=== PATIENT | male | born 1950 | race Caucasian/White ===

== ENCOUNTER 2016-07-15 09:15 | Observation (INO) ==
[2016-07-15] MEDS ORDERED: Ketorolac 30 MG/ML VIAL IVP ONE (09:42)
[2016-07-15] MEDS ORDERED: 0.9 % Sodium Chloride 1,000 ML IVC ONE (09:42)
[2016-07-15] MEDS ORDERED: *HR* FentaNYL (PF) 100 MCG/2 ML VIAL IVP ONE (09:42)
[2016-07-15] MEDS ORDERED: Ondansetron 4 MG/2 ML VIAL IVP ONE ×2 (09:48→11:22)
--- NOTE | 2016-07-15 09:52 | Emergency Department Note ---
Disposition Clinical Impression: Ureterolithiasis Hydronephrosis Qualifiers: Hydronephrosis type: with renal calculous obstruction Qualified Code(s): N13.2 - Hydronephrosis with renal and ureteral calculous obstruction Nausea and vomiting Qualifiers: Vomiting type: unspecified Vomiting Intractability: non-intractable Qualified Code(s): R11.2 - Nausea with vomiting, unspecified Disposition: Admitted As Inpatient Condition: Good Male Urogenital HPI - General Chief complaint: ED Urogenital-Male Stated complaint: Poss Kidney stone Time Seen by Provider: 07/15/16 09:27 Source: patient Mode of arrival: ambulatory Limitations: no limitations Nursing Notes Reviewed: Yes Vital Signs Reviewed: Yes - History of Present Illness HPI Narrative: 65-year-old male history of nephrolithiasis requiring extraction and lithotripsy in the past who presents to the ER with a chief complaint of left groin pain. Patient states he woke up this morning at 5:30 with left groin pain. States it feels similar to his previous kidney stones. Reports they are usually on the right side. He states that he was not sheeted and also had a few episodes of vomiting. Patient denies a history of hernia. He denies dysuria or hematuria. Patient states he does follow regularly with the urologist. No fevers. No recent illnesses. No other complaints. Pt Subjective Complaint: testicle pain, other (left groin pain) Onset (ago): hour(s) (05:30) Duration: constant Location: left testicle, left inguinal region Severity: moderate - Related Data Home Medications Medication Instructions Recorded Confirmed Loratadine [Claritin] 10 mg PO DAILY 02/09/16 07/15/16 Potassium Chloride [K-Tab ER] 10 meq PO DAILY 02/09/16 07/15/16 Hydrochlorothiazide 25 mg PO DAILY 07/15/16 07/15/16 [Hydrochlorothiazide] Allergies Allergy/AdvReac Type Severity Reaction Status Date / Time codeine Allergy Hives Verified 07/15/16 11:50 Penicillins Allergy Hives Verified 07/15/16 11:50 All systems ED: reviewed and negative except as stated. Constitutional: Denies: fever Cardiovascular: Denies: chest pain Respiratory: Denies: cough, dyspnea Gastrointestinal: Reports: abdominal pain, nausea, vomiting. Denies: diarrhea Genitourinary: Denies: dysuria, hematuria Musculoskeletal: Denies: back pain Past Medical History - Past Medical History Attestation: Yes The following information was validated with the patient. Source: patient Medical history: Reports: hypertension, kidney stones, other Surgical history: Reports: other Psychiatric history: Reports: no psych history - Social History Smoking Status: Current every day smoker Smokeless Tobacco Status: No Alcohol use: Reports: none Drug use: Reports: none Physical Exam - General Limitations: no limitations General appearance: alert, in no apparent distress - Head Head exam: atraumatic, normocephalic, normal inspection - Eye Eye exam: Present: normal appearance - ENT ENT exam: normal exam - Neck Neck exam: Present: normal inspection - Chest Chest inspection: Present: normal inspection, symmetric chest wall rise - Respiratory Respiratory exam: Present: normal lung sounds bilaterally - Cardiovascular Cardiovascular exam: Present: regular rate, normal rhythm, normal heart sounds - Abdominal Exam Abdominal Exam: Present: soft, Non-Tender. Absent: tenderness - Male exam: Present: normal inspection, normal testicular lie. Absent: inguinal hernia, scrotal swelling - Expanded Lower Extremity Exam Hip/Pelvis exam: Present: normal inspection, full ROM Upper leg exam: Present: normal inspection, full ROM Knee exam: Present: normal inspection, full ROM Lower leg exam: Present: normal inspection, full ROM Ankle exam: Present: normal inspection, full ROM Foot/toe exam: Present: normal inspection, full ROM - Back Exam Back exam: Absent: CVA tenderness (R), CVA tenderness (L) - Neurological Exam Neurological exam: Present: alert - Psychiatric Psychiatric exam: Present: normal affect, normal mood - Skin Skin exam: Present: warm, dry, intact, normal color Course Course Narrative: Patient seen and evaluated. Reports pain similar to his previous kidney stones. We will get a CT scan of the abdomen and pelvis. Also we will check some basic labs for kidney function. Pain will be controlled with IV analgesics and antiemetics. - Reevaluation(s) Reevaluation #1: Discussed results of CT scan with the patient and family. He reports that he is still in pain and would like another dose of medications. I will talk with urology about admission for pain control and for possible extraction. - Consultations Consultation #1: Discussed this case with the on-call urologist Dr. Dunne. Patient is accepted to his service for further management. Requested to be made NPO Vital Signs Temperature 97.6 F 07/15/16 09:20 Pulse Rate 82 07/15/16 09:20 Respiratory Rate 18 07/15/16 09:20 Blood Pressure 156/90 07/15/16 09:20 O2 Sat by Pulse Oximetry 97 07/15/16 09:20 Temperature 97.6 F 07/15/16 09:20 Pulse Rate 69 07/15/16 11:30 Respiratory Rate 16 07/15/16 11:30 Blood Pressure 153/96 07/15/16 11:30 O2 Sat by Pulse Oximetry 98 07/15/16 11:30 Oxygen Delivery Oxygen Delivery Room Air Urogenital-Male - MDM Narrative Medical decision making narrative: 65-year-old male presents to the ER due to left groin pain. History of multiple renal stones in the past requiring extraction. CT scan shows a 7 mm obstructing stone in the left proximal ureter. Chemistry within normal limits. Has required multiple doses of IV pain medication and anti-emetics. Patient accepted to urology service for management. - Lab Data Lab results reviewed: Yes I reviewed the patient's lab results. Result diagrams: 07/15/16 09:31 07/15/16 09:31 Lab Results 07/15/16 07/15/16 Range/Units 09:31 09:31 WBC 16.9 H (4.3-11.1) K/mcL RBC 5.41 (4.19-5.50) M/mcL Hgb 17.3 H (12.9-16.9) g/dL Hct 50.0 (37.5-50.1) % MCV 92.4 (83.0-100.0) fL MCH 32.0 (28.0-33.3) pg MCHC 34.6 (31.6-35.5) g/dL RDW 12.3 (11.5-14.5) % Plt Count 240 (140-400) K/mcL MPV 10.1 (9.4-12.4) fL Immature Gran % 0.5 (0-4) % Seg Neutrophils % 87.1 % Lymphocytes % 6.9 % Monocytes % 4.5 % Eosinophils % 0.5 % Basophils % 0.5 % Neutrophils # 14.7 H (1.6-8.9) K/mcL Lymphocytes # 1.2 (0.6-4.6) K/mcL Monocytes # 0.8 (0.0-1.3) K/mcL Eosinophils # 0.1 (0.0-0.6) K/mcL Basophils # 0.1 (0.0-0.2) K/mcL Sodium 140 (136-145) mEq/L Potassium 3.8 (3.5-4.5) mEq/L Chloride 103 (98-109) mEq/L Carbon Dioxide 27 (19-29) mEq/L BUN 18 (8-26) mg/dL Creatinine 1.14 (0.72-1.25) mg/dL Est GFR ( Amer) > 60 (> 60) Est GFR (Non-Af Amer) > 60 (> 60) BUN/Creatinine Ratio 16 (6-26) Glucose 106 H (70-99) mg/dL Calculated Osmolality 292 (280-300) Calcium 9.1 (8.6-10.8) mg/dL - Radiology Data Radiology results reviewed: Yes I reviewed the patient's radiology results. Abdomen/Pelvis CT 07/15/16 09:54 IMPRESSION: Moderate left hydronephrosis secondary to a 7 mm calculus within the proximal left ureter. Similar changes are identified on previous study though the obstructing calculus appears to be new and different. The calculus within the lower pole of the left kidney on prior exam appears to have migrated into the left proximal ureter. Small calculi within the left kidney. D/ / 07/15/2016 11:07:56 Goran Asencio MD / rossi Interpreting Provider: Goran Asencio MD Attestation Statement - Attestation Attestation: For this encounter, I have reviewed the resident, CHANGE MANAGEMENT ANALYST, or PA documentation, treatment plan, and medical decision making; and I have had face to face time with this patient. 65-year-old male presents with concerns of left flank pain. Patient states he has a long history of kidney stones in the past which are generally on the right side but he is concerned because the pain was on left. Patient states he feels a pressure in his left groin similar to his previous ureterolithiasis. Patient has had multiple stones which needed to be surgically removed in the past. Patient denies fever, chills, nausea, vomiting. CT of the abdomen and pelvis reveals a 7 mm stone which is causing hydronephrosis of the left kidney. Resident spoke with Dr. Dunne who accepted the patient onto his service. Patient will be taken to the OR for removal of stone. Patient is comfortable with the plan and his pain is controlled with IV medications.
[2016-07-15 09:59] LABS: Basophils # 0.1 K/mcL (0.0-0.2); Basophils % 0.5 %; Eosinophils # 0.1 K/mcL (0.0-0.6); Eosinophils % 0.5 %; Hemoglobin 17.3 g/dL (12.9-16.9); Immature Granulocytes % 0.5 % (0-4); Lymphocytes # 1.2 K/mcL (0.6-4.6); Lymphocytes % 6.9 %; Mean Corpuscular HGB Conc 34.6 g/dL (31.6-35.5); Mean Corpuscular Volume 92.4 fL (83.0-100.0); Mean Platelet Volume 10.1 fL (9.4-12.4); Monocytes # 0.8 K/mcL (0.0-1.3); Monocytes % 4.5 %; Neutrophils # 14.7 K/mcL (1.6-8.9); Platelet Count 240 K/mcL (140-400); Red Blood Count 5.41 M/mcL (4.19-5.50); Red Cell Distribution Width 12.3 % (11.5-14.5); Segmented Neutrophils % 87.1 %
[2016-07-15 10:15] LABS: BUN/Creatinine Ratio 16 (6-26); Blood Urea Nitrogen 18 mg/dL (8-26); Calcium 9.1 mg/dL (8.6-10.8); Carbon Dioxide 27 mEq/L (19-29); Chloride 103 mEq/L (98-109); Glucose 106 mg/dL (70-99); Osmolality,Calculated 292 (280-300); Potassium 3.8 mEq/L (3.5-4.5); Sodium 140 mEq/L (136-145); eGFR For African Americans > 60 (> 60); eGFR For Non-African Americans > 60 (> 60)
[2016-07-15] MEDS ORDERED: *HR* Morphine 2 MG/ML SYRINGE IVP ONE (11:22)
--- NOTE | 2016-07-15 13:28 | Urology History & Physical ---
Date of Encounter: 07/15/16 Time of Encounter: 13:26 Assessment and Plan (1) Ureterolithiasis Current Visit: Yes Status: Acute Patiently brought in for observation as well as to continue the operating room for left ureteroscopic stone extraction. History of Present Illness Chief complaint: left flank pain HPI: Mr. Daily is a 65 year old male with history of kidney stones. Patient came to the ED today for severe left-sided flank pain. Patient is found to have a mid proximal 7 mm ureteral stone and left side. Patient also with some mild nausea. Pain was a 10 out of 10 in nature. No fevers. Past Med Surg Social Fam HX - Past Medical History Medical history: hypertension, kidney stones, other Psychiatric history: no psych history - Past Surgical History Surgical History: other - Social History Smoking Status: Current every day smoker Smokeless Tobacco Status: No Alcohol use: none Drug use: none Medications and Allergies Loratadine [Claritin] 10 mg PO DAILY 02/09/16 [History] Potassium Chloride [K-Tab ER] 10 meq PO DAILY 02/09/16 [History] Hydrochlorothiazide [Hydrochlorothiazide] 25 mg PO DAILY 07/15/16 [History] Allergies codeine Allergy (Verified 07/15/16 11:50) Hives Penicillins Allergy (Verified 07/15/16 11:50) Hives Review of Systems - Constitutional no chills - EENT Nose, mouth and throat: no dizziness - Cardiovascular no chest pain - Respiratory no cough Exam Initial Vital Signs Temp Pulse Resp BP Pulse Ox 97.6 F 82 18 156/90 97 07/15/16 09:20 07/15/16 09:20 07/15/16 09:20 07/15/16 09:20 07/15/16 09:20 - General physical appearance Present: well developed - Respiratory Present: normal respiratory effort - Cardiovascular Cardiovascular exam IM: RRR - Abdomen Abdomen: Present: soft Urology Results - Labs 07/15/16 09:31 07/15/16 09:31 Abnormal lab results WBC 16.9 K/mcL (4.3-11.1) H 07/15/16 09:31 Hgb 17.3 g/dL (12.9-16.9) H 07/15/16 09:31 Neutrophils # 14.7 K/mcL (1.6-8.9) H 07/15/16 09:31 Glucose 106 mg/dL (70-99) H 07/15/16 09:31 All other labs normal.
[2016-07-15] MEDS ORDERED: Clindamycin 900 MG/50 ML 900 MG/50 ML IV.SOLN IVPB ONE ×2 (14:00→14:27)
--- NOTE | 2016-07-15 14:00 | Anesthesia Evaluation PreOp ---
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) Other Medical History: Denies Any Significant HX Anesthesia History: No Prior Anesthetic Complications, Past Anesthesia Alcohol Use: none Drug use: none Medications and Allergies Loratadine [Claritin] 10 mg PO DAILY 02/09/16 [History] Potassium Chloride [K-Tab ER] 10 meq PO DAILY 02/09/16 [History] Hydrochlorothiazide [Hydrochlorothiazide] 25 mg PO DAILY 07/15/16 [History] Allergies codeine Allergy (Verified 07/15/16 11:50) Hives Penicillins Allergy (Verified 07/15/16 11:50) Hives - Meds/Allergy Pre-op Review Medications Reviewed: Yes Allergies Reviewed: Yes Beta Blockers on Current Med List: No Anesthesia Results - Labs 07/15/16 09:31 07/15/16 09:31 - Imaging EKG: image reviewed (SR,) Anesthesia Exam O2 Sat Height 1.78 m Weight 86.183 kg O2 Sat by Pulse Oximetry 97 O2 Sat by Pulse Oximetry 97 O2 Sat by Pulse Oximetry 98 O2 Sat by Pulse Oximetry 95 O2 Sat by Pulse Oximetry 97 Vital Signs Temp Pulse Resp BP Pulse Ox 97.6 F 82 18 156/90 97 07/15/16 09:20 07/15/16 09:20 07/15/16 09:20 07/15/16 09:20 07/15/16 09:20 Height: 5'10'' Weight: 190# NPO (# of Hours): > 8 hrs Pain Scale: 0 Pain Scale Used: Numeric (1 - 10) - HEENT Pupil (Motor): Pupils equal, EOMI Mallampati: III Teeth: Poor dentition Oral Opening: Greater than 3 - CORRUGATED SHEET MATERIAL SHEETER LOC: Oriented CORRUGATED SHEET MATERIAL SHEETER Motor: Normal RUE, Normal LUE, Normal RLE, Normal LLE, Normal Face CORRUGATED SHEET MATERIAL SHEETER Sensory: Normal: RUE, LUE, RLE, LLE, Face - Cardiac Rhythm: Regular Murmur: None JVD: No Carotid Bruit: No - Pulmonary Breath Sounds: bilateral Clear Respiratory Effort: Symmetrical Anesthesia Assess/Plan ASA Score: 2
[2016-07-15] MEDS ORDERED: Lidocaine -MPF 2% 2 ML VIAL ONE (14:17)
[2016-07-15] MEDS ORDERED: *HR* FentaNYL (PF) 100 MCG/2 ML VIAL ONE (14:17)
[2016-07-15] MEDS ORDERED: Ondansetron 4 MG/2 ML VIAL ONE (14:17)
[2016-07-15] MEDS ORDERED: *HR* Propofol 200 MG/20 ML VIAL IVP ONE (14:17)
[2016-07-15] MEDS ORDERED: EPHEDrine 50 MG/ML VIAL ONE (14:32)
--- NOTE | 2016-07-15 14:58 | Operative Note ---
Date of procedure: 07/15/16 Pre-op diagnosis: left ureteral stone Post-op diagnosis: same Procedure: Left ureteroscopic laser lithotripsy of stone, left ureteroscopic basket retrieval stone fragment, left 4.8 x 28 cm ureteral stent placement Anesthesia: GETA Surgeon: Ezra Dunne Specimen: left ureteral stone Condition: stable Disposition: PACU Procedure in Detail: The patient was prepped and draped in normal sterile fashion after being placed in lithotomy position. I then inserted the cystoscope into the patient's bladder. I then cannulated the left ureter with a sensor wire. I then placed the semirigid ureteroscope into the ureter. Once I encountered the stone, I used the holmium laser to fragment the stone into multiple small pieces. I then used a Nitinol tipless basket to remove all stone fragments from the patient's ureter. Once this was done, the ureter was surveyed with no further stones seen. I then back fed a 4.8x28 cm ureteral stent into place on the left side, with good curl seen in the kidney and in the bladder. This was placed using fluoroscopic guidance. A string was left for easy removal. The procedure was ended.
[2016-07-15] MEDS: *HR* HYDROmorphone (PF) 1 MG/ML SYRINGE IVP PRN ×4 (15:02→15:36)
[2016-07-15] MEDS ORDERED: Ringers Solution, Lactated 1,000 ML ONE (15:26)
[2016-07-15] MEDS ORDERED: *HR* Metoprolol 5 MG/5 ML VIAL IVP ONE (15:47)
--- NOTE | 2016-07-15 15:57 | Discharge Summary ---
Date of Encounter: 07/15/16 Time of Encounter: 15:55 - Discharge Diagnosis (1) Ureterolithiasis Priority: Primary Status: Acute - Discharge Medications Prescriptions: Oxycodone HCl/Acetaminophen [Percocet 5-325 mg Tablet] 1 each PO Q6H PRN #15 tablet PRN Reason: Pain Home Medications: Loratadine [Claritin] 10 mg PO DAILY 02/09/16 [History] Potassium Chloride [K-Tab ER] 10 meq PO DAILY 02/09/16 [History] Hydrochlorothiazide 25 mg PO DAILY 07/15/16 [History] Oxycodone HCl/Acetaminophen [Percocet 5-325 mg Tablet] 1 each PO Q6H PRN #15 tablet 07/15/16 [Rx] Allergies/Adverse Reactions: Allergies codeine Allergy (Verified 07/15/16 11:50) Hives Penicillins Allergy (Verified 07/15/16 11:50) Hives Procedures and tests throughout hospitalization: left ureteroscopic stone extraction 07/15/16 Date of admission: 07/15/16 11:34 Primary care physician: PCP ONEL Discharging clinician: Ezra Dunne Anticipated date of discharge: 07/15/16 - Patient Status Disposition: Home, Self-Care Condition: Good Overall status at discharge: patient is progressing back to baseline - Discharge Instructions Follow Up With: ONEL,PCP [Primary Care Provider] - Sam Haynes MD [Partnered Physician] - (2-3 weeks) - Diet and Activity Activity: increase activity as tolerated Diet: advance to your usual diet - Hospital Course Hospital course: Mr. Daily is a 65 year old male with history of left stone extraction. patient trasferred to floor and recovered well. Time spent discussing smoking cessation with patient: 3 to 10 minutes - Time Spent with Patient Total time spent providing and/or coordinating discharge services: Less than 30 minutes Exam Initial Vital Signs Temp Pulse Resp BP Pulse Ox 97.6 F 82 18 156/90 97 07/15/16 09:20 07/15/16 09:20 07/15/16 09:20 07/15/16 09:20 07/15/16 09:20 - General physical appearance Present: well developed
--- NOTE | 2016-07-15 15:58 | Anesthesia Evaluation Post Op ---
Date of Encounter: 07/15/16 Time of Encounter: 15:57 - Vital Signs Vital Signs: vss - Lungs Lungs: Clear Ascult./Percussion - Airway Airway: Non-obstructed - Cardiovascular Baseline Rhythm - Mental Status Mental Status: Asleep with brisk response to light stimulation - Pain Pain Scale used: Devorah (Faces) - Nausea Vomiting Nausea Vomiting: Not Present - Hydration Hydration: Ice chips - Discharge PostOp Status: Transfer Patient to floor
[2016-07-15] MEDS ORDERED: *HR* HYDROcodone/Acet 5/325 mg TABLET PO PRN (16:59)
[2016-07-15] MEDS ORDERED: Naloxone 0.4 MG/ML INJ IVP PRN (16:59)
[2016-07-15] MEDS ORDERED: *HR* Promethazine 25 MG/ML VIAL IVP PRN (16:59)
[2016-07-15] MEDS ORDERED: *HR* Morphine 2 MG/ML SYRINGE IVP PRN (16:59)
[2016-07-15] MEDS ORDERED: 0.9 % Sodium Chloride 1,000 ML IVC SCH (16:59)
[2016-07-15] MEDS ORDERED: Levofloxacin 500 MG/100 ML 500 MG/100 ML BAG IVPB SCH (17:00)
[2016-07-15 20:14] VITALS: BP 126/75
== END 2016-07-15 20:40 | disposition home or self-care (01) ==
LOC: 3ANU 09:15 → EMEROO 09:15 → 3ANU 13:41
PROVIDERS: ADMIT Urology; ATTEND Urology

== ENCOUNTER 2020-05-23 10:38 | Inpatient (IN) ==
[2020-05-23] MEDS ORDERED: Heparin 1,000 UNITS/500 mL 500 ML ONE (10:52)
[2020-05-23] MEDS ORDERED: 0.9 % Sodium Chloride 1,000 ML ONE (10:52)
[2020-05-23] MEDS ORDERED: *HR* Heparin 10,000 UNIT/10 ML VIAL ONE (10:53)
[2020-05-23] MEDS ORDERED: Nitroglycerin 1,000 MCG/10 ML VIAL IV ONE ×2 (10:53→12:39)
[2020-05-23] MEDS ORDERED: ISOVUE-370 200 ML INFUS..BTL ONE ×2 (10:53→12:27)
[2020-05-23] MEDS ORDERED: *HR* Bivalirudin 250 MG VIAL IVC ONE ×2 (11:33→12:46)
[2020-05-23] MEDS ORDERED: *HR* FentaNYL (PF) 100 MCG/2 ML VIAL ONE (11:39)
[2020-05-23] MEDS ORDERED: *HR* Midazolam HCl 2 MG/2 ML VIAL ONE (11:39)
[2020-05-23] MEDS ORDERED: Amiodarone Premix 150 MG/100 ML BAG IVPB ONE (12:22)
[2020-05-23] MEDS ORDERED: Perflutren Lipid Microsphere 1.3 ML in 0.9 % Sodium Chloride 8.7 ML IVP PRN (13:17)
[2020-05-23] MEDS ORDERED: Nitroglycerin 0.4 MG TAB.SUBL SL PRN (13:17)
[2020-05-23] MEDS: Metoprolol XL (24 HR) Succ 25 MG TAB.ER.24H PO SCH (14:55)
[2020-05-23] MEDS: lisinopriL 5 MG TABLET PO SCH (14:55)
[2020-05-24 06:24] LABS: Basophils # 0.1 K/mcL (0.0-0.2); Basophils % 0.6 %; Eosinophils # 0.1 K/mcL (0.0-0.6); Eosinophils % 0.4 %; Hematocrit 45.8 % (37.5-50.1); Hemoglobin 15.1 g/dL (12.9-16.9); Immature Granulocytes % 0.4 % (0-4); Lymphocytes # 2.2 K/mcL (0.6-4.6); Lymphocytes % 19.3 %; Mean Corpuscular Hemoglobin 29.7 pg (28.0-33.3); Mean Platelet Volume 10.6 fL (9.4-12.4); Monocytes # 1.1 K/mcL (0.0-1.3); Monocytes % 9.7 %; Neutrophils # 7.9 K/mcL (1.6-8.9); Platelet Count 232 K/mcL (140-400); Red Blood Count 5.09 M/mcL (4.19-5.50); Red Cell Distribution Width 12.9 % (11.5-14.5); Segmented Neutrophils % 69.6 %; White Blood Count 11.3 K/mcL (4.3-11.1)
[2020-05-24 07:10] LABS: BUN/Creatinine Ratio 17 (6-26); Blood Urea Nitrogen 17 mg/dL (8-23); Carbon Dioxide 25 mEq/L (23-29); Chloride 102 mEq/L (98-107); Chol/HDL Ratio 4.4 (0-4.9); Cholesterol 240 mg/dL (< 200); Glucose 99 mg/dL (70-105); HDL Cholesterol 54 mg/dL (40-59); LDL Cholesterol,Calculated 167 mg/dL (< 100); Osmolality,Calculated 282 (280-300); Potassium 3.7 mEq/L (3.5-5.1); Sodium 135 mEq/L (136-145); Thyroid Stimulating Hormone 3.349 mcIU/mL (0.340-5.600); Triglycerides 97 mg/dL (< 150); Troponin I > 73.00 ng/mL (< 0.04); eGFR For African Americans > 60 (> 60); eGFR For Non-African Americans > 60 (> 60)
[2020-05-24] MEDS: Aspirin 81 MG TAB.CHEW PO SCH (08:21)
[2020-05-24] MEDS: Metoprolol XL (24 HR) Succ 25 MG TAB.ER.24H PO SCH (08:22)
[2020-05-24] MEDS: *HR* Ticagrelor 90 MG TABLET PO SCH ×2 (08:22→19:33)
[2020-05-24] MEDS: Nicotine 14 MG PATCH.TD24 TD SCH (08:22)
[2020-05-24] MEDS: lisinopriL 5 MG TABLET PO SCH (08:24)
[2020-05-24] MEDS ORDERED: Ondansetron 4 MG/2 ML VIAL IVP PRN (09:40)
[2020-05-24] MEDS ORDERED: 0.9 % Sodium Chloride 250 ML IVC ONE (09:40)
[2020-05-24] MEDS ORDERED: Ondansetron 4 MG/2 ML VIAL ONE (09:43)
[2020-05-24] MEDS ORDERED: 0.9 % Sodium Chloride 250 ML ONE (09:43)
[2020-05-24] MEDS: *HR* Heparin 5,000 UNIT/ML VIAL SQ SCH (16:20)
[2020-05-25] MEDS: *HR* Heparin 5,000 UNIT/ML VIAL SQ SCH ×2 (05:04→17:30)
[2020-05-25 07:17] LABS: Estimated Average Glucose 134 mg/dl; Hemoglobin A1C 6.3 %
[2020-05-25] MEDS: Nicotine 14 MG PATCH.TD24 TD SCH (07:38)
[2020-05-25] MEDS: Metoprolol XL (24 HR) Succ 25 MG TAB.ER.24H PO SCH (07:38)
[2020-05-25] MEDS: Aspirin 81 MG TAB.CHEW PO SCH (07:38)
[2020-05-25] MEDS: *HR* Ticagrelor 90 MG TABLET PO SCH ×2 (07:38→20:37)
[2020-05-25] MEDS ORDERED: ISOVUE-370 200 ML INFUS..BTL ONE ×2 (09:25→10:01)
[2020-05-25] MEDS ORDERED: *HR* Heparin 10,000 UNIT/10 ML VIAL ONE ×2 (09:25→10:01)
[2020-05-25] MEDS ORDERED: Heparin 1,000 UNITS/500 mL 0 ML ONE (09:25)
[2020-05-25] MEDS ORDERED: Nitroglycerin 1,000 MCG/10 ML VIAL IV ONE ×2 (09:26→10:01)
[2020-05-25] MEDS ORDERED: Ondansetron 4 MG/2 ML VIAL IVP PRN (09:38)
[2020-05-25] MEDS ORDERED: Ondansetron 4 MG/2 ML VIAL ONE (09:42)
[2020-05-25] MEDS ORDERED: *HR* FentaNYL (PF) 100 MCG/2 ML VIAL ONE ×2 (09:45→10:01)
[2020-05-25] MEDS ORDERED: *HR* Midazolam HCl 2 MG/2 ML VIAL ONE ×2 (09:45→10:01)
[2020-05-25 10:00] LABS: Basophils # 0.1 K/mcL (0.0-0.2); Basophils % 0.6 %; Eosinophils # 0.1 K/mcL (0.0-0.6); Eosinophils % 0.7 %; Immature Granulocytes % 0.3 % (0-4); Lymphocytes # 1.7 K/mcL (0.6-4.6); Lymphocytes % 19.8 %; Mean Corpuscular HGB Conc 32.6 g/dL (31.6-35.5); Mean Corpuscular Hemoglobin 29.9 pg (28.0-33.3); Mean Corpuscular Volume 91.8 fL (83.0-100.0); Mean Platelet Volume 10.6 fL (9.4-12.4); Monocytes # 0.8 K/mcL (0.0-1.3); Monocytes % 9.5 %; Platelet Count 229 K/mcL (140-400); Red Blood Count 5.01 M/mcL (4.19-5.50); Red Cell Distribution Width 13.1 % (11.5-14.5); Segmented Neutrophils % 69.1 %; White Blood Count 8.7 K/mcL (4.3-11.1)
[2020-05-25] MEDS ORDERED: Heparin 1,000 UNITS/500 mL 500 ML ONE (10:01)
[2020-05-25] MEDS ORDERED: 0.9 % Sodium Chloride 2,000 ML ONE (10:01)
[2020-05-25] MEDS ORDERED: Tirofiban 12.5 MG/250ML 0 MG/0 ML BAG ONE (10:03)
[2020-05-25 10:18] LABS: BUN/Creatinine Ratio 22 (6-26); Blood Urea Nitrogen 20 mg/dL (8-23); Calcium 8.8 mg/dL (8.6-10.3); Carbon Dioxide 25 mEq/L (23-29); Chloride 103 mEq/L (98-107); Glucose 173 mg/dL (70-105); Osmolality,Calculated 289 (280-300); Potassium 3.5 mEq/L (3.5-5.1); Sodium 136 mEq/L (136-145); eGFR For African Americans > 60 (> 60); eGFR For Non-African Americans > 60 (> 60)
[2020-05-26] MEDS: Nicotine 14 MG PATCH.TD24 TD SCH (02:13)
[2020-05-26 05:03] LABS: Hematocrit 43.5 % (37.5-50.1); Hemoglobin 14.2 g/dL (12.9-16.9)
[2020-05-26 05:27] LABS: BUN/Creatinine Ratio 24 (6-26); Blood Urea Nitrogen 18 mg/dL (8-23); eGFR For African Americans > 60 (> 60); eGFR For Non-African Americans > 60 (> 60)
[2020-05-26] MEDS: *HR* Ticagrelor 90 MG TABLET PO SCH ×2 (08:26→19:58)
[2020-05-26] MEDS: Aspirin 81 MG TAB.CHEW PO SCH (08:27)
[2020-05-26] MEDS: Metoprolol XL (24 HR) Succ 25 MG TAB.ER.24H PO SCH (08:27)
[2020-05-26] MEDS: *HR* Heparin 5,000 UNIT/ML VIAL SQ SCH ×2 (08:27→18:27)
[2020-05-26] MEDS ORDERED: lisinopriL 5 MG TABLET PO SCH (09:00)
[2020-05-26] MEDS ORDERED: Metoprolol XL (24 HR) Succ 25 MG TAB.ER.24H PO ONE ×2 (09:30→10:34)
[2020-05-26] MEDS ORDERED: Nitroglycerin 0.4 MG TAB.SUBL SL PRN (10:34)
[2020-05-26] MEDS ORDERED: Perflutren Lipid Microsphere 1.3 ML in 0.9 % Sodium Chloride 8.7 ML IVP PRN (10:34)
[2020-05-26 13:54] LABS: Magnesium 1.9 mg/dL (1.6-2.6); Potassium 3.9 mEq/L (3.5-5.1)
[2020-05-26] MEDS: Magnesium Oxide 400 MG TABLET PO SCH (15:42)
[2020-05-27] MEDS: *HR* Heparin 5,000 UNIT/ML VIAL SQ SCH ×2 (05:34→18:26)
[2020-05-27] MEDS: *HR* Ticagrelor 90 MG TABLET PO SCH ×2 (08:34→21:58)
[2020-05-27] MEDS: Nicotine 14 MG PATCH.TD24 TD SCH (08:34)
[2020-05-27] MEDS: Magnesium Oxide 400 MG TABLET PO SCH (08:34)
[2020-05-27] MEDS: lisinopriL 5 MG TABLET PO SCH (08:34)
[2020-05-27] MEDS: Aspirin 81 MG TAB.CHEW PO SCH (08:34)
[2020-05-27] MEDS ORDERED: Metoprolol XL (24 HR) Succ 50 MG TAB.ER.24H PO SCH ×2 (09:00)
[2020-05-27] MEDS: Isosorbide MONOnitrate (24 HR) 30 MG TAB.ER.24H PO SCH (14:28)
[2020-05-27] MEDS: Ondansetron 4 MG/2 ML VIAL IVP PRN (14:28)
[2020-05-27] MEDS ORDERED: *HR* OxyCODONE/APAP 5/325 TABLET PO PRN (18:11)
[2020-05-27] MEDS ORDERED: *HR* HYDROmorphone 2 MG TABLET PO PRN (18:19)
[2020-05-27] MEDS: *HR* OxyCODONE/APAP 5/325 TABLET PO PRN (18:32)
[2020-05-27] MEDS: Metoprolol XL (24 HR) Succ 50 MG TAB.ER.24H PO SCH (21:58)
[2020-05-28] MEDS: Ondansetron 4 MG/2 ML VIAL IVP PRN ×3 (00:15→21:38)
[2020-05-28] MEDS: *HR* OxyCODONE/APAP 5/325 TABLET PO PRN ×3 (02:14→21:38)
[2020-05-28] MEDS: *HR* Heparin 5,000 UNIT/ML VIAL SQ SCH ×2 (05:53→19:50)
[2020-05-28] MEDS: Metoprolol XL (24 HR) Succ 50 MG TAB.ER.24H PO SCH ×2 (10:51→21:38)
[2020-05-28 10:54] LABS: Hematocrit 43.7 % (37.5-50.1); Hemoglobin 14.2 g/dL (12.9-16.9); Mean Corpuscular HGB Conc 32.5 g/dL (31.6-35.5); Mean Corpuscular Hemoglobin 29.3 pg (28.0-33.3); Mean Corpuscular Volume 90.3 fL (83.0-100.0); Platelet Count 228 K/mcL (140-400); Red Blood Count 4.84 M/mcL (4.19-5.50); White Blood Count 10.7 K/mcL (4.3-11.1)
[2020-05-28] MEDS ORDERED: Isovue-300 50ML VIAL ONE (11:02)
[2020-05-28 11:15] LABS: Alanine Aminotransferase 46 Units/L (7-52); Albumin 3.8 g/dL (3.5-5.7); Albumin/Globulin Ratio 1.2 (1.1-2.2); Alkaline Phosphatase 103 Units/L (34-104); Aspartate Amino Transferase 44 Units/L (13-39); BUN/Creatinine Ratio 21 (6-26); Bilirubin,Total 0.6 mg/dL (0.3-1.0); Blood Urea Nitrogen 22 mg/dL (8-23); Calcium 9.1 mg/dL (8.6-10.3); Carbon Dioxide 20 mEq/L (23-29); Chloride 105 mEq/L (98-107); Globulin 3.3 g/dL (2.4-3.5); Glucose 103 mg/dL (70-105); Osmolality,Calculated 284 (280-300); Potassium 3.9 mEq/L (3.5-5.1); Sodium 135 mEq/L (136-145); Total Protein 7.1 g/dL (6.4-8.9); eGFR For African Americans > 60 (> 60); eGFR For Non-African Americans > 60 (> 60)
[2020-05-28] MEDS ORDERED: levoFLOXacin 500 MG/100 ML 500 MG/100 ML BAG IVPB ONE (11:49)
[2020-05-28] MEDS ORDERED: Lidocaine *PEDS* 1% Syringe 50 MG/5 ML SYRINGE ONE (12:19)
[2020-05-28] MEDS ORDERED: Lidocaine Jelly 6ml 1 APPL/6 ML JEL.PF.APP ONE (12:21)
[2020-05-28] MEDS ORDERED: Dexamethasone 4 MG/ML VIAL ONE (12:30)
[2020-05-28] MEDS ORDERED: Ondansetron 4 MG/2 ML VIAL ONE (12:30)
[2020-05-28] MEDS ORDERED: Lidocaine -MPF 2% 2 ML VIAL ONE ×2 (12:30)
[2020-05-28] MEDS ORDERED: *HR* PHENYLEPHRINE 1,000 MCG/10 ML SYRINGE IVP ONE (12:30)
[2020-05-28] MEDS ORDERED: *HR* Propofol 200 MG/20 ML VIAL IVP ONE (12:30)
[2020-05-28] MEDS: Magnesium Oxide 400 MG TABLET PO SCH (13:00)
[2020-05-28] MEDS: lisinopriL 5 MG TABLET PO SCH (13:00)
[2020-05-28] MEDS: Aspirin 81 MG TAB.CHEW PO SCH (13:00)
[2020-05-28] MEDS: Nicotine 14 MG PATCH.TD24 TD SCH (13:01)
[2020-05-28] MEDS: *HR* Ticagrelor 90 MG TABLET PO SCH ×2 (13:01→21:38)
[2020-05-28] MEDS: Isosorbide MONOnitrate (24 HR) 30 MG TAB.ER.24H PO SCH (13:01)
[2020-05-29] MEDS: *HR* Heparin 5,000 UNIT/ML VIAL SQ SCH (05:46)
[2020-05-29] MEDS: Ondansetron 4 MG/2 ML VIAL IVP PRN (07:53)
[2020-05-29] MEDS: lisinopriL 5 MG TABLET PO SCH (07:58)
[2020-05-29] MEDS: Aspirin 81 MG TAB.CHEW PO SCH (07:58)
[2020-05-29] MEDS: Isosorbide MONOnitrate (24 HR) 30 MG TAB.ER.24H PO SCH (07:59)
[2020-05-29] MEDS: *HR* Ticagrelor 90 MG TABLET PO SCH (07:59)
[2020-05-29] MEDS: Nicotine 14 MG PATCH.TD24 TD SCH (07:59)
[2020-05-29] MEDS: Magnesium Oxide 400 MG TABLET PO SCH (07:59)
[2020-05-29] MEDS: Metoprolol XL (24 HR) Succ 50 MG TAB.ER.24H PO SCH (07:59)
[2020-05-29 10:37] LABS: Basophils # 0.1 K/mcL (0.0-0.2); Basophils % 0.4 %; Eosinophils # 0.1 K/mcL (0.0-0.6); Eosinophils % 0.4 %; Hematocrit 43.9 % (37.5-50.1); Hemoglobin 14.5 g/dL (12.9-16.9); Immature Granulocytes % 0.3 % (0-4); Lymphocytes # 2.4 K/mcL (0.6-4.6); Lymphocytes % 19.7 %; Mean Corpuscular Hemoglobin 29.7 pg (28.0-33.3); Mean Corpuscular Volume 89.8 fL (83.0-100.0); Mean Platelet Volume 11.4 fL (9.4-12.4); Monocytes % 8.4 %; Neutrophils # 8.6 K/mcL (1.6-8.9); Platelet Count 260 K/mcL (140-400); Red Blood Count 4.89 M/mcL (4.19-5.50); Red Cell Distribution Width 13.1 % (11.5-14.5); Segmented Neutrophils % 70.8 %; White Blood Count 12.1 K/mcL (4.3-11.1)
[2020-05-29 10:55] LABS: BUN/Creatinine Ratio 21 (6-26); Blood Urea Nitrogen 21 mg/dL (8-23); Calcium 9.1 mg/dL (8.6-10.3); Carbon Dioxide 22 mEq/L (23-29); Chloride 102 mEq/L (98-107); Glucose 111 mg/dL (70-105); Osmolality,Calculated 284 (280-300); Potassium 3.4 mEq/L (3.5-5.1); Sodium 135 mEq/L (136-145); eGFR For African Americans > 60 (> 60); eGFR For Non-African Americans > 60 (> 60)
[2020-05-29] MEDS ORDERED: *HR* OxyCODONE/APAP 5/325 TABLET PO PRN (11:47)
[2020-05-29] MEDS ORDERED: *HR* HYDROmorphone 2 MG TABLET PO PRN (11:47)
[2020-05-29] MEDS ORDERED: Perflutren Lipid Microsphere 1.3 ML in 0.9 % Sodium Chloride 8.7 ML IVP PRN (11:47)
[2020-05-29] MEDS ORDERED: Nitroglycerin 0.4 MG TAB.SUBL SL PRN (11:47)
[2020-05-29] MEDS ORDERED: Ondansetron 4 MG/2 ML VIAL IVP PRN (11:47)
[2020-05-29 12:10] LABS: Adenovirus Not Detected (Not Detect); Bordetella Pertussis Not Detected (Not Detect); Chlamydophila pneumoniae Not Detected (Not Detect); Coronavirus 229E Not Detected (Not Detect); Coronavirus HKU1 Not Detected (Not Detect); Coronavirus NL63 Not Detected (Not Detect); Coronavirus OC43 Not Detected (Not Detect); Human Metapneumovirus Not Detected (Not Detect); Human Rhinovirus/Enterovirus Not Detected (Not Detect); Influenza A Subtype 2009 H1 Not Detected (Not Detect); Influenza B Not Detected (Not Detect); Mycoplasma pneumoniae Not Detected (Not Detect); Parainfluenza Virus 1 Not Detected (Not Detect); Parainfluenza Virus 2 Not Detected (Not Detect); Parainfluenza Virus 3 Not Detected (Not Detect); Parainfluenza Virus 4 Not Detected (Not Detect); Respiratory Syncytial Virus Not Detected (Not Detect); SARS-CoV-2 Not Detected (Not Detect)
[2020-05-29 14:05] VITALS: BP 103/72
[2020-05-29] MEDS ORDERED: *HR* Heparin 5,000 UNIT/ML VIAL SQ SCH (18:00)
[2020-05-29] MEDS ORDERED: Metoprolol XL (24 HR) Succ 50 MG TAB.ER.24H PO SCH (21:00)
[2020-05-29] MEDS ORDERED: *HR* Ticagrelor 90 MG TABLET PO SCH (21:00)
[2020-05-30] MEDS ORDERED: Isosorbide MONOnitrate (24 HR) 30 MG TAB.ER.24H PO SCH (09:00)
[2020-05-30] MEDS ORDERED: lisinopriL 5 MG TABLET PO SCH (09:00)
[2020-05-30] MEDS ORDERED: Nicotine 14 MG PATCH.TD24 TD SCH (09:00)
[2020-05-30] MEDS ORDERED: Magnesium Oxide 400 MG TABLET PO SCH (09:00)
[2020-05-30] MEDS ORDERED: Aspirin 81 MG TAB.CHEW PO SCH (09:00)
== END 2020-05-29 14:31 | DRG 247 ==
LOC: ICNU 11:56
PROVIDERS: ADMIT Internal Medicine Interventional Cardiology; ATTEND Internal Medicine Interventional Cardiology

== ENCOUNTER 2020-12-17 17:50 | Inpatient (IN) ==
[2020-12-17] MEDS ORDERED: Ondansetron 4 MG/2 ML VIAL IVP ONE (18:11)
[2020-12-17] MEDS: Nitroglycerin 0.4 MG TAB.SUBL SL STA ×3 (18:32→18:45)
[2020-12-17 18:45] LABS: Basophils # 0.1 K/mcL (0.0-0.2); Basophils % 0.6 %; Eosinophils # 0.1 K/mcL (0.0-0.6); Eosinophils % 0.6 %; Hemoglobin 14.4 g/dL (12.9-16.9); Immature Granulocytes % 0.2 % (0-4); Lymphocytes # 2.1 K/mcL (0.6-4.6); Lymphocytes % 21.5 %; Mean Corpuscular HGB Conc 33.5 g/dL (31.6-35.5); Mean Corpuscular Hemoglobin 29.1 pg (28.0-33.3); Mean Platelet Volume 12.2 fL (9.4-12.4); Monocytes # 1.1 K/mcL (0.0-1.3); Monocytes % 11.7 %; Neutrophils # 6.2 K/mcL (1.6-8.9); Platelet Count 221 K/mcL (140-400); Red Blood Count 4.94 M/mcL (4.19-5.50); Red Cell Distribution Width 14.8 % (11.5-14.5); Segmented Neutrophils % 65.4 %; White Blood Count 9.6 K/mcL (4.3-11.1)
[2020-12-17 18:54] LABS: Activated Partial Thrombo Time 29.4 Seconds (26.0-36.0)
[2020-12-17 18:58] LABS: BUN/Creatinine Ratio 16 (6-26); Blood Urea Nitrogen 15 mg/dL (8-23); Carbon Dioxide 23 mEq/L (23-29); Chloride 99 mEq/L (98-107); Glucose 91 mg/dL (70-105); Osmolality,Calculated 276 (280-300); Potassium 3.8 mEq/L (3.5-5.1); Sodium 133 mEq/L (136-145); eGFR For African Americans > 60 (> 60); eGFR For Non-African Americans > 60 (> 60)
[2020-12-17 18:59] LABS: Troponin I 0.03 ng/mL (< 0.04)
[2020-12-17] MEDS ORDERED: *HR* FentaNYL (PF) 100 MCG/2 ML VIAL IVP ONE (19:14)
[2020-12-17] MEDS ORDERED: Naloxone 0.4 MG/ML INJ IVP PRN (20:17)
[2020-12-18] MEDS: Ketorolac 15 MG/ML VIAL IVP PRN ×2 (00:03→09:54)
[2020-12-18] MEDS: *HR* Heparin 5,000 UNIT/ML VIAL SQ SCH ×3 (05:06→22:25)
[2020-12-18 06:37] LABS: Basophils # 0.1 K/mcL (0.0-0.2); Eosinophils # 0.2 K/mcL (0.0-0.6); Eosinophils % 2.4 %; Hemoglobin 14.2 g/dL (12.9-16.9); Immature Granulocytes % 0.1 % (0-4); Lymphocytes # 1.8 K/mcL (0.6-4.6); Mean Corpuscular HGB Conc 33.8 g/dL (31.6-35.5); Mean Corpuscular Hemoglobin 29.5 pg (28.0-33.3); Mean Corpuscular Volume 87.1 fL (83.0-100.0); Mean Platelet Volume 11.8 fL (9.4-12.4); Monocytes # 0.9 K/mcL (0.0-1.3); Monocytes % 12.9 %; Neutrophils # 3.8 K/mcL (1.6-8.9); Platelet Count 186 K/mcL (140-400); Red Blood Count 4.82 M/mcL (4.19-5.50); Red Cell Distribution Width 14.7 % (11.5-14.5); Segmented Neutrophils % 56.6 %; White Blood Count 6.8 K/mcL (4.3-11.1)
[2020-12-18 06:58] LABS: Alanine Aminotransferase 150 Units/L (7-52); Albumin 3.3 g/dL (3.5-5.7); Albumin/Globulin Ratio 0.9 (1.1-2.2); Alkaline Phosphatase 777 Units/L (34-104); Aspartate Amino Transferase 116 Units/L (13-39); BUN/Creatinine Ratio 17 (6-26); Bilirubin,Total 1.9 mg/dL (0.3-1.0); Blood Urea Nitrogen 17 mg/dL (8-23); Calcium 8.8 mg/dL (8.6-10.3); Carbon Dioxide 23 mEq/L (23-29); Chloride 102 mEq/L (98-107); Globulin 3.5 g/dL (2.4-3.5); Glucose 78 mg/dL (70-105); Magnesium 2.1 mg/dL (1.6-2.6); Osmolality,Calculated 278 (280-300); Phosphorous 3.8 mg/dL (2.7-4.5); Potassium 3.8 mEq/L (3.5-5.1); Sodium 134 mEq/L (136-145); Total Protein 6.8 g/dL (6.4-8.9); eGFR For African Americans > 60 (> 60); eGFR For Non-African Americans > 60 (> 60)
[2020-12-18] MEDS: lisinopriL 5 MG TABLET PO SCH (13:18)
[2020-12-18] MEDS: Isosorbide MONOnitrate (24 HR) 30 MG TAB.ER.24H PO SCH (13:47)
[2020-12-18] MEDS: carvediloL 6.25 MG TABLET PO SCH ×2 (13:47→20:21)
[2020-12-18] MEDS ORDERED: Isovue-370 500 ML BOTTLE IVP ONE (15:05)
[2020-12-18] MEDS: *HR* OxyCODONE Immed Rel 5 MG TABLET PO PRN ×2 (16:59→21:04)
[2020-12-18] MEDS: Magnesium Oxide 400 MG TABLET PO SCH (20:21)
[2020-12-18] MEDS ORDERED: *HR* Ticagrelor 90 MG TABLET PO SCH (21:00)
[2020-12-18] MEDS: Acetaminophen 325 MG TABLET PO PRN (23:04)
[2020-12-18] MEDS: Melatonin 3 MG TABLET PO PRN (23:04)
[2020-12-19 05:17] LABS: Basophils # 0.1 K/mcL (0.0-0.2); Basophils % 0.8 %; Eosinophils # 0.2 K/mcL (0.0-0.6); Eosinophils % 2.8 %; Hematocrit 39.7 % (37.5-50.1); Hemoglobin 13.5 g/dL (12.9-16.9); Immature Granulocytes % 0.2 % (0-4); Lymphocytes # 1.8 K/mcL (0.6-4.6); Lymphocytes % 27.1 %; Mean Corpuscular Hemoglobin 29.5 pg (28.0-33.3); Mean Corpuscular Volume 86.7 fL (83.0-100.0); Mean Platelet Volume 12.1 fL (9.4-12.4); Monocytes # 0.8 K/mcL (0.0-1.3); Monocytes % 12.7 %; Neutrophils # 3.7 K/mcL (1.6-8.9); Platelet Count 186 K/mcL (140-400); Red Blood Count 4.58 M/mcL (4.19-5.50); Red Cell Distribution Width 14.6 % (11.5-14.5); Segmented Neutrophils % 56.4 %; White Blood Count 6.5 K/mcL (4.3-11.1)
[2020-12-19 05:36] LABS: Alanine Aminotransferase 149 Units/L (7-52); Albumin 3.2 g/dL (3.5-5.7); Alkaline Phosphatase 746 Units/L (34-104); Aspartate Amino Transferase 118 Units/L (13-39); BUN/Creatinine Ratio 24 (6-26); Bilirubin,Total 1.7 mg/dL (0.3-1.0); Blood Urea Nitrogen 21 mg/dL (8-23); Calcium 8.4 mg/dL (8.6-10.3); Carbon Dioxide 25 mEq/L (23-29); Chloride 103 mEq/L (98-107); Globulin 3.3 g/dL (2.4-3.5); Glucose 126 mg/dL (70-105); Osmolality,Calculated 281 (280-300); Phosphorous 3.4 mg/dL (2.7-4.5); Potassium 3.7 mEq/L (3.5-5.1); Sodium 133 mEq/L (136-145); Total Protein 6.5 g/dL (6.4-8.9); eGFR For African Americans > 60 (> 60); eGFR For Non-African Americans > 60 (> 60)
[2020-12-19] MEDS: Magnesium Oxide 400 MG TABLET PO SCH ×2 (08:13→21:03)
[2020-12-19] MEDS: lisinopriL 5 MG TABLET PO SCH (08:13)
[2020-12-19] MEDS: Isosorbide MONOnitrate (24 HR) 30 MG TAB.ER.24H PO SCH (08:14)
[2020-12-19] MEDS: carvediloL 6.25 MG TABLET PO SCH ×2 (08:14→21:03)
[2020-12-19] MEDS: Furosemide 20 MG TABLET PO SCH (08:14)
[2020-12-19] MEDS: *HR* OxyCODONE Immed Rel 5 MG TABLET PO PRN ×2 (08:15→21:03)
[2020-12-19] MEDS ORDERED: Aspirin 81 MG TAB.CHEW PO SCH (09:00)
[2020-12-19 11:01] LABS: Carcinoembryonic Antigen 5.6 ng/mL (Less than 5.0)
[2020-12-19] MEDS: Ondansetron 4 MG/2 ML VIAL IVP PRN (14:06)
[2020-12-19] MEDS: *HR* Heparin 5,000 UNIT/ML VIAL SQ SCH (18:18)
[2020-12-19] MEDS: Melatonin 3 MG TABLET PO PRN (21:03)
[2020-12-20 03:07] VITALS: O2SAT 96
[2020-12-20] MEDS: *HR* Heparin 5,000 UNIT/ML VIAL SQ SCH (04:44)
[2020-12-20] MEDS: *HR* OxyCODONE Immed Rel 5 MG TABLET PO PRN (05:01)
[2020-12-20 07:23] VITALS: BP 113/73; PULSE 67; TEMP 98.3
[2020-12-20] MEDS: Isosorbide MONOnitrate (24 HR) 30 MG TAB.ER.24H PO SCH (08:37)
[2020-12-20] MEDS: carvediloL 6.25 MG TABLET PO SCH (08:37)
[2020-12-20] MEDS: Magnesium Oxide 400 MG TABLET PO SCH (08:37)
[2020-12-20] MEDS: Acetaminophen 325 MG TABLET PO PRN (08:37)
[2020-12-20] MEDS: lisinopriL 5 MG TABLET PO SCH (08:38)
[2020-12-20] MEDS: Ondansetron 4 MG/2 ML VIAL IVP PRN (08:38)
[2020-12-20] MEDS: Furosemide 20 MG TABLET PO SCH (08:38)
[2020-12-22 11:28] LABS: AFP Tumor Marker Non-Pregnant 49 ng/mL (0-9); Cancer Antigen-GI (CA 19-9) 2 U/mL (0-37)
== END 2020-12-20 12:51 | disposition home or self-care (01) | DRG 436 ==
LOC: EMEROOARM 17:50 → 3BNU 17:50 → SUATTDRO 19:36 → 3BNU 20:12 → SUATTDRO 12-18 14:33
PROVIDERS: ADMIT Internal Medicine; ATTEND Registered Nurse